=== PATIENT | female | born 1960 | race Caucasian/White ===

== ENCOUNTER 2017-10-06 07:58 | Day surgery (SDC) | payer BC ==
[2017-10-06] MEDS ORDERED: Lactated Ringers 1,000 ML IV SCH (08:30)
[2017-10-06] MEDS ORDERED: fentaNYL 100 MCG/2 ML SDV ONE (09:08)
[2017-10-06] MEDS ORDERED: Midazolam 1 MG/ML 2 ML SDV ONE (09:08)
[2017-10-06] MEDS ORDERED: Propofol 200 MG/20 ML SDV ONE (09:08)
--- NOTE | 2017-10-06 12:52 | OR ---
DATE OF PROCEDURE: 10/06/2017 PREOPERATIVE DIAGNOSIS: Colon cancer screening. POSTOPERATIVE DIAGNOSIS: Two colon polyps, right colon and 20 cm from the anal verge. PROCEDURES: Colonoscopy to the cecum with biopsy resection of a small right colon polyp and snare cautery polypectomy of moderate-sized polyp, 20 cm from the anal verge. SURGEON: Osbaldo Esparza MD. ANESTHESIA: IV anesthesia with monitored anesthesia care. INDICATION: This 57-year-old white female was referred for a colonoscopy for colon cancer screening. Her last colonoscopic exam was done about ten years ago for constipation. I counseled her for the procedure including the risks and alternatives, and she gave her informed consent to proceed. DESCRIPTION OF PROCEDURE: The patient was placed in the left lateral decubitus position. IV anesthesia was administered by the Anesthesia Service. Time-out was held. A rectal exam was performed, which was unremarkable. The flexible video Olympus colonoscope was introduced through her anus, up her rectum, and out her colon all the way to the cecum. Once the cecum was reached, the scope was slowly withdrawn, examining the mucosa throughout. In the right colon, we saw a small polyp, which was removed with a few bites of the biopsy forceps. No other lesions were noted until we reached 20 cm from the anal verge. Here, a larger polyp was seen. The snare was passed about its base. It was elevated up away from the bowel wall and amputated as electrocautery was applied. This polyp was aspirated up through the scope and captured in a polyp trap. The scope was brought back into the rectum, where it was retroflexed with the distal rectum appearing unremarkable. The scope was straightened and removed. She tolerated the procedure well. Osbaldo Esparza MD /[id number] PREET
== END 2017-10-06 12:07 | disposition home or self-care (01) ==
LOC: JP.SDS 07:58
PROVIDERS: ATTEND Surgery
DX: Z12.11 Encounter for screening for malignant neoplasm of colon (principal); D12.2 Benign neoplasm of ascending colon; D12.6 Benign neoplasm of colon, unspecified
CPT/HCPCS: 45380; 45385; J2250; J2704; J3010; J7120; 88305

== ENCOUNTER 2020-08-06 07:08 | Day surgery (SDC) | payer BC ==
[2020-08-06] MEDS ORDERED: Dextrose 5%-Lactated Ringers 1,000 ML IV SCH (07:30)
[2020-08-06] MEDS ORDERED: fentaNYL 100 MCG/2 ML SDV ONE (08:59)
[2020-08-06] MEDS ORDERED: Propofol 200 MG/20 ML SDV ONE (09:00)
[2020-08-06] MEDS ORDERED: Midazolam 1 MG/ML 2 ML SDV ONE (09:00)
--- NOTE | 2020-08-12 15:05 | OR ---
DATE OF PROCEDURE: 08/06/2020 SURGEON: Waldo Alfaro MD PREOPERATIVE DIAGNOSIS: History of colon polyps. POSTOPERATIVE DIAGNOSIS: Normal screening colonoscopy. OPERATIVE PROCEDURE: Flexible colonoscopy. ANESTHESIA: IV sedation. INDICATION FOR PROCEDURE: This is a 60-year-old female presenting for followup colonoscopy, she had polyps removed in 2017, is here for followup screening colonoscopy with biopsies and polypectomy as indicated. Potential risks including bleeding and perforation were discussed, and the patient wishes to proceed. DETAILS OF PROCEDURE: The patient was taken to the operating room, placed in a left lateral decubitus position. IV sedation was administered, after which the initial digital rectal exam was performed and it was unremarkable. Colonoscope was passed into the rectum with retroflexion revealing uncomplicated hemorrhoidal columns. Scope was eventually passed to the cecum. The prep was quite good with only small amount of liquid stool present. To that level, no abnormalities were noted. Specifically, there were no areas of diverticulosis, no areas of colitis. No polyps or other signs of neoplasia. Scope was then withdrawn, the above findings reconfirmed, and procedure then concluded. The patient was taken to the recovery room in satisfactory condition. Given the personal history of colon polyps, the next colonoscopy should be in 5 years. Waldo Alfaro MD /[id number]
== END 2020-08-06 11:01 | disposition home or self-care (01) ==
LOC: JP.SDS 07:08
PROVIDERS: ATTEND Surgery
DX: Z12.11 Encounter for screening for malignant neoplasm of colon (principal); K64.9 Unspecified hemorrhoids; Z86.010 Personal history of colon polyps; Z98.890 Other specified postprocedural states
CPT/HCPCS: 45378; J2250; J2704; J3010; J7121

== ENCOUNTER 2022-06-29 19:34 | Emergency (ER) | payer BC | END 2022-06-29 21:37 | disposition home or self-care (01) | LOC: JP.ED 19:34 | DX: H35.9 Unspecified retinal disorder (principal); H43.9 Unspecified disorder of vitreous body | CPT/HCPCS: 99283 ==

== ENCOUNTER 2025-10-17 09:44 | Day surgery (SDC) | payer BC ==
[2025-10-17] MEDS ORDERED: Midazolam 1 MG/ML 2 ML SDV ONE (10:14)
[2025-10-17] MEDS ORDERED: Propofol 200 MG/20 ML SDV ONE (10:14)
[2025-10-17] MEDS ORDERED: fentaNYL 50 MCG/ML SDV ONE (10:15)
[2025-10-17] MEDS: Lactated Ringers 1,000 ML IV SCH (10:25)
== END 2025-10-17 13:10 | disposition home or self-care (01) ==
LOC: JP.SDS 09:44
PROVIDERS: ATTEND Surgery
DX: Z12.11 Encounter for screening for malignant neoplasm of colon (principal); Z86.0100 Personal history of colon polyps, unspecified
CPT/HCPCS: 45378; J2250; J2704; J3010; J7120